=== PATIENT | male | born 1960 | race Caucasian/White ===

== ENCOUNTER 2019-02-18 09:37 | Inpatient (IN) | payer MEDICAID ==
[~2019-02-18] VITALS: Ht 180.3 cm; Wt 76.3 kg
[2019-02-18] MEDS ORDERED: DOCUSATE 100 MG CAPSULE PO PRN (10:00)
[2019-02-18] MEDS ORDERED: POLYETHYLENE GLYCOL 17 GM PACKET PO PRN (10:00)
[2019-02-18] MEDS ORDERED: BISACODYL 10 MG SUPP PR PRN (10:00)
[2019-02-18] MEDS ORDERED: ALBU6.7H8 INH (11:54)
[2019-02-18] MEDS ORDERED: QUET50TA79 PO (11:55)
[2019-02-18] MEDS ORDERED: BENZ-17 PO (11:56)
[2019-02-18] MEDS ORDERED: PRED25PO10 PO (11:57)
[2019-02-18] MEDS ORDERED: PRED20TA PO (11:58)
[2019-02-18] MEDS ORDERED: TERA5CAP3 PO (11:58)
[2019-02-18] MEDS ORDERED: CARB1TAB22 PO (11:59)
[2019-02-18] MEDS ORDERED: LISI10TA2 PO (11:59)
[2019-02-18] MEDS ORDERED: ALBUTEROL SULFATE 90 MCG INH SCH (12:00)
[2019-02-18 12:28] LABS: MICROSCOPIC NOT IND
[2019-02-18 12:29] VITALS: BP 135/92
[2019-02-18] MEDS ORDERED: ALBUTEROL SULFATE 2.5 MG/3 ML NPPB PRN (12:30)
[2019-02-18 12:41] LABS: CULTURE INDICATED? NO
[2019-02-18] MEDS: CARBIDOPA/LEVODOPA 25 MG/100 MG TABLET PO SCH ×3 (13:08→19:51)
[2019-02-18] MEDS: TERAZOSIN 5MG CAPSULE PO SCH (13:08)
[2019-02-18] MEDS: LISINOPRIL 10 MG TABLET PO SCH (13:12)
[2019-02-18 13:36] LABS: BASOPHILS # (AUTO) 0.08 x10^3/uL (0-0.1); BASOPHILS % (AUTO) 1 % (0-1); EOSINOPHILS # (AUTO) 0.33 x10^3/uL (0-0.4); EOSINOPHILS % (AUTO) 3 % (1-7); LYMPHOCYTES # (AUTO) 1.84 x10^3/uL (1-3.4); LYMPHOCYTES % (AUTO) 16 % (22-44); MD NO; MEAN CORPUSCULAR HEMOGLOBIN 30.9 pg (27.5-34.5); MEAN CORPUSCULAR HGB CONC 32.6 g/dL (33.2-36.2); MEAN CORPUSCULAR VOLUME 95.1 fL (81-97); MEAN PLATELET VOLUME 6.9 fL (7.4-10.4); MONOCYTES # (AUTO) 0.98 x10^3/uL (0.2-0.8); MONOCYTES % (AUTO) 8 % (2-9); NEUTROPHILS % (AUTO) 72 % (42-75); PLATELET COUNT 466 x10^3/uL (130-400); RED BLOOD COUNT 4.31 x10^6/uL (4.38-5.82); RED CELL DISTRIBUTION WIDTH 14.1 % (9.4-14.8)
[2019-02-18 13:47] LABS: ANION GAP 3 mmol/L (5-15); CALCIUM 8.5 mg/dL (8.5-10.1); CHLORIDE 111 mmol/L (98-107); CHOLESTEROL, TOTAL 133 mg/dL (140-239); TRIGLYCERIDES 72 mg/dL (50-200); VLDL CHOLESTEROL 14 mg/dL (0-25)
[2019-02-18 13:58] LABS: CHOL/HDL RATIO 2.9; FREE T4 (FREE THYROXINE) 1.07 ng/dL (0.76-1.46); HDL CHOL % 35 % (26-37); HDL CHOLESTEROL (DIRECT) 46 mg/dL (40-60); LDL CHOLESTEROL,CALCULATED 73 mg/dL (54-169); LDL/HDL RATIO 1.6 (0.5-3.0)
[2019-02-18 19:00] VITALS: BP 110/69
[2019-02-18] MEDS: QUETIAPINE 25MG TABLET PO SCH (19:51)
[2019-02-18] MEDS ORDERED: FLU VACC QS2019-20 36MOS UP/PF 0.5 ML IM-VACC ONE (20:00)
[2019-02-19] MEDS: CARBIDOPA/LEVODOPA 25 MG/100 MG TABLET PO SCH ×4 (06:15→20:17)
[2019-02-19 07:21] VITALS: BP 120/70
[2019-02-19] MEDS: TERAZOSIN 5MG CAPSULE PO SCH (08:56)
[2019-02-19] MEDS: QUETIAPINE 25MG TABLET PO SCH ×3 (08:57→20:17)
[2019-02-19] MEDS: LISINOPRIL 10 MG TABLET PO SCH (08:57)
[2019-02-19] MEDS: ACETAMINOPHEN 325 MG TABLET PO PRN ×2 (09:06→15:59)
[2019-02-19 19:20] VITALS: BP 102/56
[2019-02-20] MEDS: CARBIDOPA/LEVODOPA 25 MG/100 MG TABLET PO SCH ×4 (05:24→20:25)
[2019-02-20 07:53] VITALS: BP 118/72
[2019-02-20] MEDS: ONDANSETRON ODT 4 MG PO PRN ×2 (08:01→15:42)
[2019-02-20] MEDS: LISINOPRIL 10 MG TABLET PO SCH (08:55)
[2019-02-20] MEDS: TERAZOSIN 5MG CAPSULE PO SCH (08:55)
[2019-02-20] MEDS: QUETIAPINE 25MG TABLET PO SCH ×3 (08:56→20:25)
[2019-02-20 19:58] VITALS: BP 116/69
[2019-02-20] MEDS: ACETAMINOPHEN 325 MG TABLET PO PRN (20:25)
[2019-02-20] MEDS ORDERED: LOPERAMIDE 2 MG CAPSULE PO ONE (21:30)
[2019-02-20] MEDS ORDERED: LOPERAMIDE 2 MG CAPSULE PO PRN (21:30)
[2019-02-21] MEDS: CARBIDOPA/LEVODOPA 25 MG/100 MG TABLET PO SCH ×4 (06:11→20:21)
[2019-02-21 07:35] VITALS: BP 113/64
[2019-02-21] MEDS: TERAZOSIN 5MG CAPSULE PO SCH (09:14)
[2019-02-21] MEDS: LISINOPRIL 10 MG TABLET PO SCH (09:14)
[2019-02-21] MEDS: QUETIAPINE 25MG TABLET PO SCH ×3 (09:15→20:21)
[2019-02-21] MEDS: ACETAMINOPHEN 325 MG TABLET PO PRN (09:25)
[2019-02-21 19:15] VITALS: BP 114/66
[2019-02-22] MEDS: CARBIDOPA/LEVODOPA 25 MG/100 MG TABLET PO SCH ×4 (05:58→20:11)
[2019-02-22 07:15] VITALS: BP 101/67
[2019-02-22] MEDS: TERAZOSIN 5MG CAPSULE PO SCH (08:58)
[2019-02-22] MEDS: LISINOPRIL 10 MG TABLET PO SCH (08:59)
[2019-02-22] MEDS: QUETIAPINE 25MG TABLET PO SCH ×3 (08:59→20:11)
[2019-02-22] MEDS: ACETAMINOPHEN 325 MG TABLET PO PRN (11:43)
[2019-02-22 19:00] VITALS: BP 96/62
[2019-02-23] MEDS: CARBIDOPA/LEVODOPA 25 MG/100 MG TABLET PO SCH ×2 (06:11→08:37)
[2019-02-23 07:05] VITALS: BP 96/61
[2019-02-23] MEDS: TERAZOSIN 5MG CAPSULE PO SCH (08:38)
[2019-02-23] MEDS: LISINOPRIL 10 MG TABLET PO SCH (08:39)
[2019-02-23] MEDS: QUETIAPINE 25MG TABLET PO SCH (08:39)
[2019-02-23] MEDS: CARBIDOPA/LEVODOPA CR 50 MG/200 MG TABLET PO SCH ×3 (11:58→20:20)
[2019-02-23] MEDS: QUETIAPINE 100MG TABLET PO SCH ×2 (15:43→20:20)
[2019-02-23 19:47] VITALS: BP 99/62
[2019-02-24] MEDS: CARBIDOPA/LEVODOPA CR 50 MG/200 MG TABLET PO SCH ×4 (05:55→21:03)
[2019-02-24 07:47] VITALS: BP 97/65
[2019-02-24] MEDS: TERAZOSIN 5MG CAPSULE PO SCH (08:27)
[2019-02-24] MEDS: ACETAMINOPHEN 325 MG TABLET PO PRN ×2 (08:27→15:06)
[2019-02-24] MEDS: QUETIAPINE 100MG TABLET PO SCH ×3 (08:27→21:04)
[2019-02-24] MEDS: LISINOPRIL 10 MG TABLET PO SCH (08:27)
[2019-02-24 19:11] VITALS: BP 102/68
[2019-02-25] MEDS: CARBIDOPA/LEVODOPA CR 50 MG/200 MG TABLET PO SCH ×4 (06:10→21:16)
[2019-02-25 07:10] VITALS: BP 92/61
[2019-02-25] MEDS: LISINOPRIL 10 MG TABLET PO SCH (08:55)
[2019-02-25] MEDS: TERAZOSIN 5MG CAPSULE PO SCH (08:55)
[2019-02-25] MEDS: QUETIAPINE 100MG TABLET PO SCH ×3 (08:56→21:16)
[2019-02-25 19:06] VITALS: BP 110/64
[2019-02-25] MEDS: ACETAMINOPHEN 325 MG TABLET PO PRN (21:17)
[2019-02-26] MEDS: CARBIDOPA/LEVODOPA CR 50 MG/200 MG TABLET PO SCH ×4 (06:23→20:56)
[2019-02-26 07:11] VITALS: BP 103/67
[2019-02-26] MEDS: LISINOPRIL 10 MG TABLET PO SCH (08:43)
[2019-02-26] MEDS: QUETIAPINE 100MG TABLET PO SCH ×3 (08:43→20:55)
[2019-02-26] MEDS: ACETAMINOPHEN 325 MG TABLET PO PRN ×2 (12:01→21:02)
[2019-02-26] MEDS ORDERED: TERA5CAP3 PO (12:56)
[2019-02-26] MEDS ORDERED: LISI-167 PO (12:56)
[2019-02-26] MEDS ORDERED: QUET100T PO (12:56)
[2019-02-26] MEDS ORDERED: CARB1TAB44 PO (12:56)
[2019-02-26 19:52] VITALS: BP 108/68
[2019-02-26] MEDS ORDERED: TERAZOSIN 5MG CAPSULE PO SCH (21:00)
[2019-02-27] MEDS: CARBIDOPA/LEVODOPA CR 50 MG/200 MG TABLET PO SCH (06:24)
[2019-02-27 07:45] VITALS: BP 108/66
[2019-02-27] MEDS: QUETIAPINE 100MG TABLET PO SCH (08:19)
[2019-02-27] MEDS: LISINOPRIL 10 MG TABLET PO SCH (08:19)
[2019-03-01] MEDS ORDERED: MOME13HF INH (18:17)
== END 2019-02-27 09:34 | disposition home or self-care (01) | DRG 750 ==
LOC: 3E 11:37
PROVIDERS: ADMIT Psychiatry & Neurology Psychosomatic Medicine; ATTEND Psychiatry & Neurology Psychosomatic Medicine
CPT/HCPCS: 36415; 71045; 80048; 80061; 81003; 82607; 84439; 84443; 85025; 85651; 86592; 90686; 93005; Q0162

== ENCOUNTER 2019-12-05 09:51 | Emergency (ER) | payer MEDICAID ==
[~2019-12-05] VITALS: Ht 180.3 cm; Wt 70.0 kg
[~2019-12-05 09:51] MED LIST: ALBU6.7H8 INH; BENZ-17 PO; CARB1TAB22 PO; CARB1TAB44 PO; LISI-167 PO; LISI10TA2 PO; MOME13HF INH; OLAN10TA3 PO; PRED20TA PO; PRED25PO10 PO; QUET100T PO; QUET50TA79 PO; TERA5CAP3 PO
[2019-12-05] MEDS ORDERED: SODIUM CHLORIDE 0.9% 1,000ML IVBOLUS ONE (10:30)
[2019-12-05] MEDS ORDERED: SODIUM CHLORIDE FLUSH 10ML SYR IVF ONE (10:30)
[2019-12-05] MEDS ORDERED: AMPICILLIN/SULBACTAM 3 GM in SODIUM CHLORIDE 0.9% 100 ML IV ONE (10:30)
[2019-12-05] MEDS ORDERED: CLINDAMYCIN PMX 900MG/50ML 50 ML ONE (10:39)
--- NOTE | 2019-12-05 10:51 | NUR ---
TELEPHONE CALL FROM LAB. BLOOD HEMOLYZED, SENDING VOLUNTEER PATIENT REPRESENTATIVE FOR REDRAW.
[2019-12-05 10:55] LABS: ALBUMIN 3.5 g/dL (3.4-5.0); ANION GAP 5 mmol/L (5-15); CHLORIDE 109 mmol/L (98-107)
[2019-12-05 10:58] LABS: ALANINE AMINOTRANSFERASE 17 U/L (12-78); ALKALINE PHOSPHATASE 129 U/L (45-117); BILIRUBIN,TOTAL 0.2 mg/dL (0.2-1.0); CREATININE 1.09 mg/dL (0.7-1.3); TOTAL PROTEIN 7.6 g/dL (6.4-8.2)
[2019-12-05] MEDS ORDERED: CLINDAMYCIN PMX 900MG/50ML 50 ML IV ONE (11:00)
[2019-12-05 11:04] VITALS: BP 120/63
--- NOTE | 2019-12-05 11:05 | NUR ---
LATE ENTRY: PIV INITIATED PT MEDICATED PER MAR. VSS, NAD NOTED
[2019-12-05 11:58] LABS: BASOPHILS # (AUTO) 0.08 x10^3/uL (0-0.1); BASOPHILS % (AUTO) 1 % (0-1); EOSINOPHILS # (AUTO) 0.38 x10^3/uL (0-0.4); EOSINOPHILS % (AUTO) 5 % (1-7); LYMPHOCYTES # (AUTO) 1.16 x10^3/uL (1-3.4); LYMPHOCYTES % (AUTO) 15 % (22-44); MD NO; MEAN CORPUSCULAR HEMOGLOBIN 30.6 pg (27.5-34.5); MEAN CORPUSCULAR HGB CONC 32.5 g/dL (33.2-36.2); MEAN CORPUSCULAR VOLUME 94.1 fL (81-97); MEAN PLATELET VOLUME 7.4 fL (7.4-10.4); MONOCYTES % (AUTO) 8 % (2-9); NEUTROPHILS # (AUTO) 5.74 x10^3/uL (1.8-6.8); NEUTROPHILS % (AUTO) 72 % (42-75); PLATELET COUNT 334 x10^3/uL (130-400); RED BLOOD COUNT 4.28 x10^6/uL (4.38-5.82); RED CELL DISTRIBUTION WIDTH 13.8 % (9.4-14.8)
--- NOTE | 2019-12-05 12:30 | NUR ---
WOUND CARE PROVIDED, WOUND SWABBED AND SENT TO LAB. PIV REMOVED, PT GIVEN DC INSTRUCTIONS. PT WITH PLAN TO RETURN [facility] AT 10 AM FOR ADMISSION
== END 2019-12-05 12:48 | disposition home or self-care (01) ==
LOC: ED 10:49
DX: L03.113 Cellulitis of right upper limb (principal); I10 Essential (primary) hypertension; J44.9 Chronic obstructive pulmonary disease, unspecified; Z88.0 Allergy status to penicillin; Z88.9 Allergy status to unspecified drugs, medicaments and biological substances; Z79.899 Other long term (current) drug therapy
CPT/HCPCS: 36415; 73130; 80053; 85025; 87040; 87070; 87205; 96361; 96365; 99284; J7030

== ENCOUNTER 2019-12-06 09:54 | Emergency (ER) | payer MEDICAID ==
[~2019-12-06] VITALS: Ht 180.3 cm; Wt 69.3 kg
[2019-12-06 10:39] LABS: BASOPHILS # (AUTO) 0.03 x10^3/uL (0-0.1); BASOPHILS % (AUTO) 0 % (0-1); EOSINOPHILS # (AUTO) 0.44 x10^3/uL (0-0.4); EOSINOPHILS % (AUTO) 6 % (1-7); LYMPHOCYTES # (AUTO) 1.66 x10^3/uL (1-3.4); LYMPHOCYTES % (AUTO) 22 % (22-44); MD NO; MEAN CORPUSCULAR HEMOGLOBIN 30.6 pg (27.5-34.5); MEAN CORPUSCULAR HGB CONC 32.6 g/dL (33.2-36.2); MONOCYTES % (AUTO) 9 % (2-9); NEUTROPHILS # (AUTO) 4.91 x10^3/uL (1.8-6.8); NEUTROPHILS % (AUTO) 64 % (42-75); PLATELET COUNT 386 x10^3/uL (130-400); RED BLOOD COUNT 4.78 x10^6/uL (4.38-5.82); RED CELL DISTRIBUTION WIDTH 13.5 % (9.4-14.8)
[2019-12-06 10:49] LABS: ALBUMIN 3.3 g/dL (3.4-5.0); ANION GAP 6 mmol/L (5-15); CHLORIDE 111 mmol/L (98-107)
[2019-12-06] MEDS ORDERED: CLINDAMYCIN PMX 900MG/50ML 50 ML ONE (11:00)
[2019-12-06] MEDS ORDERED: CLINDAMYCIN PMX 900MG/50ML 50 ML IVPB ONE (11:00)
[2019-12-06 12:57] VITALS: BP 108/67
== END 2019-12-06 12:58 | disposition home or self-care (01) ==
LOC: ED 10:34
DX: L03.113 Cellulitis of right upper limb (principal); I10 Essential (primary) hypertension; J44.9 Chronic obstructive pulmonary disease, unspecified; F17.210 Nicotine dependence, cigarettes, uncomplicated; Z88.0 Allergy status to penicillin; Z88.9 Allergy status to unspecified drugs, medicaments and biological substances
CPT/HCPCS: 36415; 80048; 82040; 85025; 96365; 99284; 99406